=== PATIENT | male | born 1975 | race Two or more races ===

== ENCOUNTER 2017-01-04 02:01 | Emergency (ER) | payer SELFPAY ==
[~2017-01-04] VITALS: Ht 172.7 cm; Wt 77.5 kg
[2017-01-04 02:05] VITALS: BP 140/90
[2017-01-04] MEDS ORDERED: LORazepam 1MG TABLET ONE (02:24)
[2017-01-04] MEDS ORDERED: LORazepam 1MG TABLET PO ONE (02:30)
== END 2017-01-04 02:56 | disposition home or self-care (01) ==
LOC: ED 02:41
DX: F41.1 Generalized anxiety disorder (principal); F15.10 Other stimulant abuse, uncomplicated
CPT/HCPCS: 99283